=== PATIENT | female | born 1960 | race Caucasian/White ===

== ENCOUNTER 2020-05-04 13:58 | Emergency (ER) | payer BC ==
[2020-05-04 14:04] VITALS: BP 125/71
--- NOTE | 2020-05-04 14:19 | ED Physician Documentation ---
PD HPI UPPER EXT INJURY - Stated complaint Stated Complaint: RT THUMB INJURY - Chief complaint Chief Complaint: Ext Problem - History obtained from History obtained from: Patient - History of Present Illness Location: Right, Hand - Additonal information Additional information: She slipped and fell on the ice 7 days ago injuring her R thumb with persistent pain. Review of Systems Constitutional: reports: Reviewed and negative Cardiac: reports: Reviewed and negative Respiratory: reports: Reviewed and negative PD PAST MEDICAL HISTORY - Allergies Allergies/Adverse Reactions: Allergies Allergy/AdvReac Type Severity Reaction Status Date / Time Penicillins Allergy Hives Verified 05/04/20 14:01 PD ED PE NORMAL - Vitals Vital signs reviewed: Yes - General General: Alert and oriented X 3, No acute distress - Extremities Extremities: Other (The right hand, she is tender around the MCP of the thumb especially on the ulnar side with suggestion of laxity of the UCL, difficult to check formally because of pain. NVI at the tip.) - Neuro Neuro: Alert and oriented X 3, Normal speech Results - Vitals Vitals: Vital Signs - 24 hr 05/04/20 14:01 Temperature 36.5 C Heart Rate 89 Respiratory 16 Rate Blood Pressure 125/71 O2 Saturation 98 Oxygen O2 Source Room air Departure - Departure Disposition: Home, Self Care Clinical Impression: Rupture of UCL of right thumb Qualifiers: Encounter type: initial encounter Qualified Code(s): S63.641A - Sprain of metacarpophalangeal joint of right thumb, initial encounter Condition: Good Record reviewed to determine appropriate education?: Yes Instructions: ED Sprain Finger Comments: Discussed, the x-ray looks good without evidence of fracture, but I am worried that you have a injury known is gamekeeper's thumb. This mandates follow-up with a hand surgeon, the closest is in [place] and I have put his contact information on this form for you to follow-up with him, call Wednesday for an appointment. Return for new or worsening symptoms. Wear the splint at all times except when you are bathing/washing your hand. Tylenol or ibuprofen as needed for pain. Hand surgeon: Sigifredo Bae MD [facility] Appointments:
--- NOTE | 2020-05-04 14:34 | XRAY Report ---
PROCEDURE: Finger(s) RT INDICATIONS: R thumb inj TECHNIQUE: AP hand, 2 views of the right thumb acquired. COMPARISON: None FINDINGS: Bones: No fractures or dislocations. No suspicious bony lesions. Mild degenerative change at the th umb IP joint. Soft tissues: No suspicious soft tissue calcifications. IMPRESSION: No evidence acute bony abnormality of the right thumb. Reviewed by: Julio Wei MD on 05/04/2020 2:33 PM PST Approved by: Julio Wei MD on 05/04/2020 2:33 PM PST Station ID: [id number]
== END 2020-05-04 15:08 | disposition home or self-care (01) ==
LOC: ED 13:58
DX: S63.641A Sprain of metacarpophalangeal joint of right thumb, initial encounter (principal); W00.9XXA Unspecified fall due to ice and snow, initial encounter
CPT/HCPCS: 99282; 99283